=== PATIENT | male | born 2000 | race Caucasian/White ===

== ENCOUNTER 2023-12-14 03:10 | Emergency (ER) | payer BC ==
[~2023-12-14] VITALS: Ht 172.7 cm; Wt 93.2 kg
[2023-12-14 03:20] VITALS: TEMP 97.8
[2023-12-14] MEDS ORDERED: Acetaminophen 500 MG TAB PO ONE (03:45)
[2023-12-14] MEDS ORDERED: Ibuprofen 400 MG TAB PO ONE (03:45)
[2023-12-14] MEDS ORDERED: FLEXERIL5 MG PO (04:48)
[2023-12-14 05:10] VITALS: BP 142/78; PULSE 78
== END 2023-12-14 05:13 | disposition home or self-care (01) ==
LOC: COL.ER 03:10
DX: B34.9 Viral infection, unspecified (principal); R53.81 Other malaise; R09.81 Nasal congestion; R20.2 Paresthesia of skin; J02.9 Acute pharyngitis, unspecified; M62.838 Other muscle spasm